=== PATIENT | female | born 1950 | race Caucasian/White ===

== ENCOUNTER 2024-09-14 14:18 | Emergency (ER) | payer MEDICARE ==
[~2024-09-14] VITALS: Ht 172.7 cm; Wt 75.0 kg
[2024-09-14 14:28] VITALS: BP 122/79; PULSE 90; RESP 18; TEMP 37.2; O2SAT 95
[2024-09-14 16:09] LABS: BASOPHILS % 0.9 % (0.0-2.0); EOSINOPHILS % 1.5 % (0.0-5.0); HEMATOCRIT. 38.2 % (36.0-48.0); LYMPHOCYTES % 34.3 % (20.0-50.0); MEAN CORPUSCULAR HEMOGLOBIN 32.8 pg (28.0-32.0); MEAN CORPUSCULAR VOLUME 96.4 fL (81.0-99.0); MEAN PLATELET VOLUME 9.3 fl (7.4-10.4); MONOCYTES % 6.4 % (2.0-8.0); NEUTROPHILS % 56.9 % (40.0-76.0); PLATELET 170 x1000/uL (130-400); RED BLOOD CELL COUNT 3.97 mill/uL (4.2-5.4); RED CELL DISTRIBUTION WIDTH 12.9 % (11.6-14.6); WHITE BLOOD COUNT 6.4 x1000/uL (4.5-11.0)
[2024-09-14 16:15] LABS: CARBON DIOXIDE 26 mEq/L (21-32); CHLORIDE 106 mEq/L (98-107); POTASSIUM 3.5 mEq/L (3.5-5.1); SODIUM 142 mEq/L (136-145)
[2024-09-14 16:16] LABS: CALCIUM 9.7 mg/dL (8.7-10.4)
[2024-09-14 16:20] LABS: CREATININE 1.2 mg/dL (0.6-1.0)
[2024-09-14 16:21] LABS: GLUCOSE 89 mg/dL (70-105); UREA NITROGEN BLOOD 16 mg/dL (9-23)
[2024-09-14 16:23] LABS: ALANINE AMINOTRANSFERASE 8 IU/L (10-49); ALBUMIN 3.9 g/dL (3.2-4.8); ASPARTATE AMINOTRANSFERASE 15 IU/L (<34); BILIRUBIN TOTAL 0.8 mg/dL (0.1-1.0); PROTEIN TOTAL 6.3 g/dL (6.0-8.3)
[2024-09-14 16:49] LABS: CLARITY URINE CLOUDY (CLEAR); COLOR URINE DARK YELLOW (YELLOW); GLUCOSE URINE NEGATIVE (NEGATIVE); KETONES URINE TRACE (NEGATIVE); LEUKOCYTE ESTERASE URINE NEGATIVE (NEGATIVE); NITRITE URINE NEGATIVE (NEGATIVE); OCCULT BLOOD URINE NEGATIVE (NEGATIVE); PH URINE 5.5 (4.5-8.0); PROTEIN URINE 1+ (NEGATIVE); SPECIFIC GRAVITY URINE 1.035 (1.005-1.030)
[2024-09-14 17:22] LABS: BACTERIA URINE NONE SEEN; CALCIUM OXALATE CRYSTALS URINE 2+ /lpf; RBC URINE NONE SEEN /hpf (0-2); SQUAMOUS EPITHELIAL CELL URINE NONE SEEN /lpf (RARE/1+); WBC URINE 0-2 /hpf (0-2)
[2024-09-14] MEDS ORDERED: LOPE2CAP MT (18:11)
[2024-09-14] MEDS: LOPERAMIDE HCL 2MG CAPSULE PO ONE (18:15)
== END 2024-09-14 18:56 | disposition home or self-care (01) ==
LOC: ER 14:18
DX: R19.7 Diarrhea, unspecified (principal); I11.0 Hypertensive heart disease with heart failure; I50.9 Heart failure, unspecified; I25.2 Old myocardial infarction; J44.89 Other specified chronic obstructive pulmonary disease; Z88.5 Allergy status to narcotic agent; Z90.49 Acquired absence of other specified parts of digestive tract
CPT/HCPCS: 36415; 74176; 80053; 81003; 85025; 99284